=== PATIENT | female | born 1965 | race Caucasian/White ===

== ENCOUNTER 2018-09-02 12:26 | Day surgery (SDC) | payer OTHER ==
[2018-08-30 18:38] VITALS: BMI 25.9
[2018-09-02] MEDS ORDERED: MIDAZOLAM HCL 2 MG/2 ML SINGLE DOSE VIAL ONE ×2 (14:30→14:39)
--- NOTE | 2018-09-02 15:44 | OP ---
Operative Note - Note: Operative Date: 09/02/18 Pre-Operative Diagnosis: Right renal stone Operation: Right ESWL Findings: 5 mm mid pole Right renal stone Post-Operative Diagnosis: Same as Pre-op Surgeon: Chip Morales Anesthesia: Fractional Estimated Blood Loss (mls): 0 Operative Report Dictated: Yes
[2018-09-02] MEDS ORDERED: ONDANSETRON 4 MG/2 ML VIAL IVPUSH ONE (16:30)
[2018-09-02 18:34] VITALS: BP 114/61; PULSE 50; TEMP 97.8
--- NOTE | 2018-09-03 09:30 | OP ---
DATE OF OPERATION: 09/02/2018 PREOPERATIVE DIAGNOSIS: Right renal stone. POSTOPERATIVE DIAGNOSIS: Right renal stone. PROCEDURE: Right extracorporeal shockwave lithotripsy. ATTENDING: Mabel Florian MD ANESTHESIA: Fractional. OPERATION: Patient was brought in the operating room, placed in the supine position on the operating room table. Ultrasonography and fluoroscopy were performed. A 5-mm right mid pole stone was identified. At this point anesthesia and preoperative antibiotics were administered. Shockwave lithotripsy was then performed. Patient tolerated the procedure very well. There were no complications noted. The disposition of the patient was to the recovery room. MABEL FLORIAN M.D. /[id number]
== END 2018-09-02 18:22 | disposition home or self-care (01) ==
LOC: JASU-SURG 12:26
PROVIDERS: ATTEND Urology
PROC: 0TF3XZZ Fragmentation in Right Kidney Pelvis, External Approach (ICD-10-PCS; principal; 2018-09-02 14:00)
DX: N20.0 Calculus of kidney (principal)

== ENCOUNTER 2019-08-02 12:09 | Emergency (ER) | payer OTHER ==
[2019-08-02 12:41] VITALS: BP 112/69; PULSE 84; TEMP 98.1; BMI 26.5
[2019-08-02] MEDS ORDERED: methylPREDNISolone NA SUCC 125 MG/2 ML VIAL IVPB ONE (13:08)
[2019-08-02] MEDS ORDERED: FAMOTIDINE 20 MG/50 ML IVPB 20 MG/50 ML MG IVPB ONE ×2 (13:08→13:16)
--- NOTE | 2019-08-02 13:08 | PDOC ---
History of Present Illness - General Chief Complaint: Allergic Reaction Stated Complaint: ALLERGIC REACTION Time Seen by Provider: 08/02/19 12:46 History Source: Patient, Family Exam Limitations: No Limitations - History of Present Illness Initial Comments: 08/02/19 12:50 PCP: Royal Source: Patient and Daughter HPI: 53yo F with no sig PMH with recent ED visit on presenting with diffuse hives since 10PM last night. Patient was discharged home with Prednisone 40 daily, Pepcid daily, and Benadryl as needed. Patient reports taking these medications on morning, symptoms recurred that evening and she took a Benadryl without relief. This AM she took only Benadryl at 7AM. Complaining on hives, some difficulty breathing without wheezing, LH, swelling. Patient and daughter cannot think of any re-aggravating factors before Sunday and onsets. 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 Ask if she could be allergic to benadryl - but taken after symptom onset both presentations. Denies CP, diarrhea, nausea, vomiting, SAGE, abdominal pain, lightheadeness, syncope. All: NKDA Meds: Denies PMH: Denies PSH: Denies SHx: No smoking / drinking / illicits Past History - Travel Traveled outside of the country in the last 30 days: No Close contact w/someone who was outside of country & ill: No - Past Medical History Allergies/Adverse Reactions: Allergies Allergy/AdvReac Type Severity Reaction Status Date / Time grass pollen Allergy Severe Verified 08/02/19 13:05 mold Allergy Verified 08/02/19 13:05 Home Medications: Ambulatory Orders Famotidine [Pepcid] 20 mg PO DAILY #4 tablet 07/31/19 predniSONE [Deltasone -] 40 mg PO DAILY #8 tablet 07/31/19 predniSONE [Deltasone -] 60 mg PO DAILY 5 Days #15 tablet 08/02/19 Anemia: No Asthma: No Cancer: No Cardiac Disorders: No CVA: No COPD: No CHF: No Dementia: No Diabetes: No GI Disorders: No Disorders: No HTN: No Hypercholesterolemia: No Liver Disease: No Seizures: No Thyroid Disease: No - Surgical History Abdominal Surgery: No Appendectomy: No Cardiac Surgery: No Cholecystectomy: No Lung Surgery: No Neurologic Surgery: No Orthopedic Surgery: No - Immunization History Immunization Up to Date: No - Psycho Social/Smoking Cessation Hx Smoking History: Never smoked Have you smoked in the past 12 months: No Information on smoking cessation initiated: No Hx Alcohol Use: No Drug/Substance Use Hx: No Substance Use Type: None Hx Substance Use Treatment: No Review of Systems - Review of Systems Able to Perform ROS?: Yes Is the patient limited Turkmen proficient: Yes Constitutional: Yes: Chills. No: Diaphoresis, Fever, Night Sweats, Weakness HEENTM: No: Blurred Vision, Recent change in vision, Nose Congestion, Throat Pain, Throat Swelling, Difficulty Swallowing, Mouth Swelling Respiratory: Yes: Shortness of Breath. No: Cough, SOB with Exertion, SOB at Rest, Stridor, Wheezing, Productive cough Cardiac (ROS): No: Chest Pain, Edema, Irregular Heart Rate, Lightheadedness, Palpitations, Syncope, Chest Tightness ABD/GI: No: Constipated, Diarrhea, Nausea, Vomiting : No: Burning, Dysuria, Frequency Musculoskeletal: No: Muscle Pain, Muscle Weakness Integumentary: Yes: Erythema, Pruritus, Rash. No: Dryness, Lumps, Sweating Neurological: No: Headache, Numbness, Tingling, Weakness Psychiatric: No: Stressors, Change in Appetite Endocrine: No: Intolerance to Cold, Intolerance to Heat, Increased Thirst, Increased Urine, Change in Weight Hematologic/Lymphatic: No: Anemia, Blood Clots, Easy Bleeding All Other Systems: Reviewed and Negative *Physical Exam - Vital Signs Last Vital Signs Temp Pulse Resp BP Pulse Ox 98.1 F 84 16 112/69 100 08/02/19 12:36 08/02/19 12:36 08/02/19 12:36 08/02/19 12:36 08/02/19 12:36 - Physical Exam 08/02/19 13:18 Vitals reviewed, AFVSS GEN: Well appearing, appears stated age, NAD, comfortable. AAOx3. HEENT: NCAT, EOMI, PERRL. Sclera anicteric, noninjected. No facial asymmetry. Moist mucous membranes. Normal voice. Trachea midline. CV: RRR, S1/S2, no murmurs / rubs / gallops appreciated. LUNG: CTAB, +good air movement, normal work of breathing. No wheezes, rales, rhonchi. No cough. Speaking full sentences. GI: Soft, NTND, +BS, no guarding, no rebound. No masses. Neg CVAT b/l. EXTREMITIES: 2+ distal pulses. No LE edema. No obvious deformities of all extremities. SKIN: Warm, dry, +urticaria with excoriation across face, thorax, abdomen and 4x extermities, non-jaundiced. PSYCH: Normal mood and affect. Cooperative and appropriate. NEURO: CN grossly intact. Moving all extremities well. Normal strength and sensation grossly. Normal gait. Medical Decision Making - Medical Decision Making 08/02/19 13:16 53yo F with no sig PMH with recent ED visit on presenting with diffuse hives since 10PM last night. History notable for non-medication today, absence of symptoms other than urticaria. Exam notable for urticaria, stable vitals, normal lung exam. Patient will need follow up with an fire adjuster - encouraged to start a journal to help identify possible causes. - Solumedrol - Famotidine IV - Benadryl 08/02/19 13:31 - Reglan for nausea 08/02/19 14:11 - Patient reports itch has resolved, some redness improving 08/02/19 15:29 - Feeling better, plan and return precautions discussed - Patient agrees, ready for discharge Discharge - Discharge Information Problems reviewed: Yes Clinical Impression/Diagnosis: Urticaria Condition: Stable Disposition: HOME - Admission No - Follow up/Referral Referrals: Emily Paige [Primary Care Provider] - - Patient Discharge Instructions Patient Printed Discharge Instructions: DI for Hives Additional Instructions: You were seen and evaluated in [facility] ER for allergic reaction. A new prescription for higher dose steroids (60 mg instead of 40 mg) has been sent to your pharmacy. Please pick this up and take it daily as directed. Continue to take daily Pepcid and Benadryl every 6 hours. Please call the provided [employer] (Dr. Mason at [facility]) to arrange follow up in the next 1 week. In the meantime, I encourage you to maintain a journal of foods / drinks / soaps / activities and their brands to help identify what causes your allergic reaction. Please follow up with your primary care doctor jimmy diana Sunday morning as discussed - this is important for arranging appropriate steroid discontinuation. Return to the ED for any new or concerning symptoms. - Post Discharge Activity
[2019-08-02] MEDS ORDERED: methylPREDNISolone NA SUCC 125 MG/2 ML VIAL ONE (13:15)
[2019-08-02] MEDS ORDERED: METOCLOPRAMIDE HCL INJECTION 10 MG/2 ML VIAL IVPB ONE (13:31)
[2019-08-02] MEDS ORDERED: METOCLOPRAMIDE HCL INJECTION 10 MG/2 ML VIAL ONE (13:51)
--- NOTE | 2019-08-02 16:09 | PDOC ---
Attending Attestation - Resident Resident Name: Sree Mckay - ED Attending Attestation I have performed the following: I have examined & evaluated the patient, The case was reviewed & discussed with the resident, I agree w/resident's findings & plan, Exceptions are as noted - HPI HPI: 08/02/19 16:00 Ms. Malagon is a 53 yo F no sig PMH who presents to the ER again for hives Pt was seen two days ago, was discharged on Prednisone 40mg daily Hives recurred last night at 10PM last night. This morning, she took Benadryl but did not take the prednisone Currently reporting hives, some difficulty breathing without wheezing, diffuse urticaria Pt has been seen by Allergy and immunology. Told she is allergic to grass, pollen, mold, and dust Pt has not changed anything in her regimen - foods, meds, soaps, detergents Denies CP, diarrhea, nausea, vomiting, SAGE, abdominal pain, lightheadeness, syncope. - Physicial Exam PE: 08/02/19 16:09 GENERAL: The patient is in no acute distress. ENT: Ears normal, nares patent, oropharynx clear without exudates. Moist mucous membranes. No tonsillar enlargement, no exudates. No oral lesions NECK: Normal range of motion, supple, no nuchal rigidity LUNGS: Breath sounds equal, clear to auscultation bilaterally. No wheezes, and no crackles. HEART: Regular rate and rhythm, normal S1 and S2 without murmur, rub or gallop. ABDOMEN: Soft, nontender, normoactive bowel sounds. EXTREMITIES: Normal range of motion, no edema. NEUROLOGICAL: Cranial nerves II through XII grossly intact. Normal speech. No focal neurological deficits. SKIN: Multiple urticarial lesions on the arms, trunk, abdomen, back, legs - Medical Decision Making 08/02/19 16:10 Patient given Solu-Medrol Patient given Benadryl Notable improvement in urticaria Patient asked to start prednisone 60 mg daily Patient has a follow-up with another pension manager as soon as possible Follow-up with primary care physician within 2 days Clinical impression: Urticaria, repeat presentation
== END 2019-08-02 15:55 | disposition home or self-care (01) ==
LOC: JER 12:09
PROC: 3E033GC Introduction of Other Therapeutic Substance into Peripheral Vein, Percutaneous Approach (ICD-10-PCS; principal; 2019-08-02)
PROC: 3E033GC Introduction of Other Therapeutic Substance into Peripheral Vein, Percutaneous Approach (ICD-10-PCS; 2019-08-02)
PROC: 3E033GC Introduction of Other Therapeutic Substance into Peripheral Vein, Percutaneous Approach (ICD-10-PCS; 2019-08-02)
PROC: 3E0333Z Introduction of Anti-inflammatory into Peripheral Vein, Percutaneous Approach (ICD-10-PCS; 2019-08-02)
DX: L50.9 Urticaria, unspecified (principal); Z91.048 Other nonmedicinal substance allergy status
CPT/HCPCS: 96365; 96375; 99282-25